=== PATIENT | male | born 2005 | race Caucasian/White ===

== ENCOUNTER 2025-10-12 09:39 | Emergency (ER) | payer OTHER ==
[~2025-10-12] VITALS: Ht 172.7 cm; Wt 65.1 kg
[2025-10-12 10:13] VITALS: BP 119/75
[2025-10-12] MEDS ORDERED: ERYTHROMYCIN 3.5 GM HOME.PACK OP ONE (10:15)
[2025-10-12] MEDS ORDERED: ERYTHROMYCIN1 GM OP (10:16)
== END 2025-10-12 10:26 | disposition home or self-care (01) ==
LOC: ED 09:39
DX: H00.012 Hordeolum externum right lower eyelid (principal)
CPT/HCPCS: 99283